=== PATIENT | female | born 1985 | race Caucasian/White ===

== ENCOUNTER 2021-01-30 06:29 | Day surgery (SDC) | payer MEDICAID ==
[2021-01-29 09:38] LABS: HEMATOCRIT 41.2 % (36.0-48.0); HEMOGLOBIN 13.9 g/dL (12-16); MCH 29.7 pg (26.0-34.0); MCHC 33.8 g/dL (31.0-37.0); MCV 87.9 fL (80.0-100.0); MEAN PLATELET VOLUME 6.6 fL (7.4-10.4); RBC 4.69 10x6/uL (4.00-5.40); RDW 14.5 % (11.5-14.5); WBC 10.7 10x3/uL (4.8-10.8)
[~2021-01-30] VITALS: Ht 165.1 cm; Wt 107.0 kg
[~2021-01-30 06:29] MED LIST: CLOZAPINE200 MG PO; GABAPENTIN300 MG PO; HYDROXYZINE HCL50 MG PO; LITHIUM CARBON300 MG PO; MINIPRESS2 MG PO; TOFRANIL25 MG PO
[2021-01-30 06:46] VITALS: Ht 165.1 cm; Wt 107.0 kg
[2021-01-30 07:28] LABS: HCG URINE NEGATIVE (NEGATIVE)
--- NOTE | 2021-01-30 10:54 | NUR ---
1015 - UP TO BATHROOM TO VOID AND DRESS FOR DISCHARGE. IV D/C'D WITH TIP INTACT.
--- NOTE | 2021-01-30 10:55 | NUR ---
1030 - DISCHARGED TO PRIVATE CAR VIA WHEELCHAIR.
== END 2021-01-30 10:30 | disposition home or self-care (01) ==
LOC: D.OPS 06:29
PROVIDERS: Anesthesiology; ATTEND Obstetrics & Gynecology Maternal & Fetal Medicine
DX: R33.9 Retention of urine, unspecified (principal); N39.41 Urge incontinence